=== PATIENT | male | born 1970 | race Hispanic/Latino ===

== ENCOUNTER 2016-12-12 09:15 | Emergency (ER) | payer BC ==
[~2016-12-12] VITALS: Ht 180.3 cm; Wt 86.1 kg
[2016-12-12] MEDS ORDERED: AMOX TR-K CLV1 EAC4 PO (09:39)
[2016-12-12] MEDS ORDERED: PIOGLITAZONE HC30 MG PO (09:40)
[2016-12-12] MEDS ORDERED: ATORVASTATIN CA20 MG PO (09:41)
[2016-12-12] MEDS ORDERED: GLIMEPIRIDE2 MG PO (09:41)
[2016-12-12] MEDS ORDERED: AZITHROMYCIN250 MG PO (09:41)
[2016-12-12] MEDS ORDERED: LISINOPRIL5 MG PO (09:42)
[2016-12-12 10:17] LABS: EOSINOPHIL (%) 0.4 % (0-5); HEMATOCRIT 47.1 % (38.0-50.0); IMMATURE GRANULOCYTE (%) 0.3 % (0.0-0.7); INSTRUMENT ABS NEUTROPHIL CT 4.3 K/uL; LYMPHOCYTE COUNT 2.7 K/uL (1.0-2.8); MCH 29.6 PG (29.0-34.0); MCHC 32.7 G/DL (30.0-36.0); MCV 90.4 FL (86-99); MEAN PLAT.VOLUME 9.7 uM^3 (9.0-12.4); MONOCYTE (%) 5.7 % (3-12); MONOCYTE COUNT 0.4 K/uL (0-0.8); NEUTROPHIL (%) 57.2 % (45-76); NEUTROPHIL COUNT 4.3 K/uL (1.8-6.4); PLATELET COUNT 326 K/uL (156-360); RBC DIS.WIDTH-SD 42.7 % (39-53); RED BLOOD COUNT 5.21 M/uL (4.00-5.50); WHITE BLOOD COUNT 7.4 K/uL (4.1-10.2)
[2016-12-12 10:27] LABS: D-DIMER ELISA 0.16 mg/L FEU (< 0.57)
[2016-12-12 10:49] LABS: CHLORIDE 109 mEq/L (99-109); POTASSIUM 4.8 mEq/L (3.7-5.4); SODIUM 138 mEq/L (136-147)
[2016-12-12 10:51] LABS: GLUCOSE 94 mg/dL (70-99)
[2016-12-12 10:52] LABS: ANION GAP 8 MEQ/L (2-14)
[2016-12-12 10:55] LABS: UREA NITROGEN (BUN) 13 mg/dL (9-23)
[2016-12-12 10:56] LABS: GFR ESTIMATE (CALCULATED) > 59 mL/min/
[2016-12-12 10:57] LABS: CREATINE KINASE 116 IU/L (1-294); TOTAL CK 116 IU/L (1-294)
[2016-12-12 10:59] LABS: TROP-I INTERPRETATION NEGATIVE; TROPONIN-I < 0.01 ng/mL (0.0-0.30)
[2016-12-12 11:03] LABS: CK-MB 1.4 ng/mL (0.0-4.9)
[2016-12-12] MEDS ORDERED: MOTRIN800 MG PO (11:49)
[2016-12-12] MEDS ORDERED: FLEXERIL10 MG PO (11:49)
[2016-12-12 12:01] VITALS: BP 116/71
== END 2016-12-12 12:03 | disposition home or self-care (01) ==
LOC: EME 09:15
PROVIDERS: Emergency Medicine
DX: M54.6 Pain in thoracic spine (principal); E11.9 Type 2 diabetes mellitus without complications; Z79.84 Long term (current) use of oral hypoglycemic drugs
CPT/HCPCS: 71020; 80048; 82550; 82553; 84484; 85025; 85379; 93005; 99281; 99284; J1885; J7030

== ENCOUNTER 2017-04-02 13:02 | Emergency (ER) | payer BC ==
[~2017-04-02] VITALS: Ht 177.8 cm; Wt 81.5 kg
[~2017-04-02 13:02] MED LIST: AMOX TR-K CLV1 EAC4 PO; ATORVASTATIN CA20 MG PO; AZITHROMYCIN250 MG PO; FLEXERIL10 MG PO; GLIMEPIRIDE2 MG PO; LISINOPRIL5 MG PO; MOTRIN800 MG PO; PIOGLITAZONE HC30 MG PO
[2017-04-02 14:30] LABS: ADD MIUA? YES; BILIRUBIN NEGATIVE; BLOOD SMALL; COLOR YELLOW ((YELLOW)); GLUCOSE (STRIP) 150; KETONES NEGATIVE; LEUKOCYTES NEGATIVE; NITRITE NEGATIVE; PROTEIN (STRIP) 30; SPECIFIC GRAVITY 1.017 (1.000-1.030)
[2017-04-02 14:33] LABS: BACTERIA NONE SEEN /HPF; EPITHELIAL CELLS NONE SEEN /HPF; MUCUS TRACE /LPF; RED BLOOD CELLS 0-5 /HPF (0-5); UCUL ADDED? NO; WHITE BLOOD CELLS 0-5 /HPF (0-5)
[2017-04-02 14:35] LABS: EOSINOPHIL (%) 0.1 % (0-5); HEMATOCRIT 41.6 % (38.0-50.0); IMMATURE GRANULOCYTE (%) 0.4 % (0.0-0.7); IMMATURE GRANULOCYTE COUNT 0.1 K/uL; LYMPHOCYTE COUNT 1.7 K/uL (1.0-2.8); MCH 30.3 PG (29.0-34.0); MCHC 33.9 G/DL (30.0-36.0); MCV 89.3 FL (86-99); MEAN PLAT.VOLUME 9.4 uM^3 (9.0-12.4); MONOCYTE COUNT 1.3 K/uL (0-0.8); NEUTROPHIL (%) 78.3 % (45-76); PLATELET COUNT 251 K/uL (156-360); RBC DIS.WIDTH-CV 12.7 % (11.8-14.6); RBC DIS.WIDTH-SD 41.6 % (39-53); RED BLOOD COUNT 4.66 M/uL (4.00-5.50)
[2017-04-02 14:43] LABS: CHLORIDE 103 mEq/L (99-109); POTASSIUM 3.5 mEq/L (3.7-5.4); SODIUM 137 mEq/L (136-147)
[2017-04-02 14:45] LABS: GLUCOSE 120 mg/dL (70-99)
[2017-04-02 14:47] LABS: ANION GAP 10 MEQ/L (2-14)
[2017-04-02 14:49] LABS: GFR ESTIMATE (CALCULATED) > 59 mL/min/
[2017-04-02 14:50] LABS: UREA NITROGEN (BUN) 14 mg/dL (9-23)
[2017-04-02] MEDS ORDERED: ZOFRAN ODT8 MG PO (15:08)
[2017-04-02] MEDS ORDERED: MOTRIN800 MG PO (15:08)
[2017-04-02 15:21] VITALS: BP 133/72
== END 2017-04-02 15:27 | disposition home or self-care (01) ==
LOC: EME 13:02
DX: B34.9 Viral infection, unspecified (principal); E11.9 Type 2 diabetes mellitus without complications; Z79.84 Long term (current) use of oral hypoglycemic drugs
CPT/HCPCS: 80048; 81003; 83605; 85025; 99281; 99285; J1885